=== PATIENT | female | born 1970 | race Caucasian/White ===

== ENCOUNTER 2019-04-09 16:26 | Emergency (ER) | payer BC, OTHER, MEDICAID ==
[~2019-04-09] VITALS: Ht 165.1 cm; Wt 81.8 kg
[2019-04-09 17:47] VITALS: BP 141/90
== END 2019-04-09 17:49 | disposition home or self-care (01) ==
LOC: M ED 16:26
DX: Z77.098 Contact with and (suspected) exposure to other hazardous, chiefly nonmedicinal, chemicals (principal); Y92.149 Unspecified place in prison as the place of occurrence of the external cause; Y93.9 Activity, unspecified; Y99.0 Civilian activity done for income or pay; R42 Dizziness and giddiness; R05 Cough; R61 Generalized hyperhidrosis; R68.83 Chills (without fever); Z82.49 Family history of ischemic heart disease and other diseases of the circulatory system; Z83.6 Family history of other diseases of the respiratory system

== ENCOUNTER → 2024-11-26 | Outpatient (CLI) | payer BC, MEDICAID | LOC: M PLAIMG 06:40 | PROVIDERS: ATTEND Physician Assistant Surgical | DX: M76.61 Achilles tendinitis, right leg (principal); M76.62 Achilles tendinitis, left leg; M25.472 Effusion, left ankle ==

== ENCOUNTER → 2025-01-24 | Outpatient (CLI) | payer BC, MEDICAID | LOC: M RAD 16:03 | PROVIDERS: ATTEND Physician Assistant Surgical | DX: M51.362 Other intervertebral disc degeneration, lumbar region with discogenic back pain and lower extremity pain (principal); M43.17 Spondylolisthesis, lumbosacral region; M47.816 Spondylosis without myelopathy or radiculopathy, lumbar region; M48.061 Spinal stenosis, lumbar region without neurogenic claudication; M51.27 Other intervertebral disc displacement, lumbosacral region ==

== ENCOUNTER → 2025-06-23 | Outpatient (CLI) | payer BC, MEDICAID | LOC: M PLAIMG 10:57 | PROVIDERS: ATTEND Physician Assistant Surgical | DX: M17.12 Unilateral primary osteoarthritis, left knee (principal); S83.412A Sprain of medial collateral ligament of left knee, initial encounter; M94.8X6 Other specified disorders of cartilage, lower leg ==